=== PATIENT | female | born 1940 | race Caucasian/White ===

== ENCOUNTER 2018-09-03 10:30 | Inpatient (IN) ==
[2018-09-03] MEDS ORDERED: ACETAMINOPHEN 325 MG TABLET PO PRN (13:05)
[2018-09-03] MEDS ORDERED: NITROGLYCERIN SL 0.4 MG TABLET SL PRN (13:44)
[2018-09-03] MEDS ORDERED: FLUTICASONE 50 MCG NASAL SPRAY 16 GM BOTTLE BOTH NARES PRN (13:44)
[2018-09-03] MEDS ORDERED: DOCUSATE SODIUM 100 MG CAPSULE PO PRN (13:44)
[2018-09-03] MEDS ORDERED: AZITHROMYCIN 250 MG TABLET PO ONE (13:48)
[2018-09-03] MEDS ORDERED: AZITHROMYCIN INJ 500 MG in SODIUM CHLORIDE 0.9% 250 ML IV SCH (14:00)
[2018-09-03 14:09] LABS: Basophils # 0.1 10*3/uL (0.0-0.2); Basophils % 0.7 % (0.0-0.8); Eosinophils # 0.1 10*3/uL (0.0-0.87); Eosinophils % 0.8 % (0.00-10.9); Hematocrit 36.2 VOL% (35.7-47.0); Hemoglobin 12.6 GM/DL (12.0-16.0); Immature Granulocytes % 0.6 %; Immature Granulocytes Absolute 0.05 #; Lymphocytes # 2.6 10*3/uL (1.4-4.0); Lymphocytes % 30.3 % (21.3-54.2); Mean Corpuscular HGB Conc 34.8 GM/DL (32-36); Mean Corpuscular Hemoglobin 33 PG (27-34); Mean Corpuscular Volume 94.8 FL (87-102); Mean Platelet Volume 9.7 FL (9.6-12.0); Monocytes # 0.6 10*3/uL (0.11-0.8); Monocytes % 7.1 % (1.7-12.7); Neutrophils # 5.1 10*3/uL (1.4-7.4); Neutrophils % 60.5 % (38.7-73.9); Platelet Count 272 T/CUMM (130-400); Red Blood Count 3.82 MC/CUMM (3.8-5.5); Red Cell Distribution Width 15.9 % (9.3-17.3); White Blood Count 8.4 T/CUMM (4-12)
[2018-09-03 14:27] LABS: Albumin 3.7 G/DL (3.4-5.0); Bilirubin,Total 0.7 MG/DL (0.2-1.0); Calcium 8.9 MG/DL (8.5-10.1); Osmolality,Calculated 280.3 MOS/KG (273-304); Potassium 4.2 MMOL/L (3.5-5.1); Total Protein 7.1 G/DL (6.4-8.3)
[2018-09-03] MEDS: methylPREDNISolone SOD SUC 40 MG/1 ML VIAL IV SCH ×2 (14:30→21:42)
[2018-09-03] MEDS: NICOTINE 21 MG/24 HR PATCH TRANSDERM SCH (14:30)
[2018-09-03 14:39] LABS: Apearance,Urine CLEAR (Clear); Bilirubin,Urine Negative (Negative); Blood, Urine Negative (Negative); Glucose,Urine (UA) Negative (Negative); Ketones,Urine Negative (Negative); Mucus,Urine Occasional /LPF (Occasional); Nitrite,Urine Negative (Negative); Protein,Urine Negative; RBC,Urine 1 /HPF (0-4); Urine Color Yellow (Yellow); Urine Specific Gravity 1.016 (1.001-1.035); WBC,Urine 1 /HPF (0-6)
[2018-09-03] MEDS ORDERED: ALBUTEROL/IPRATROPIUM 3 ML NEB RESP TX PRN (15:00)
[2018-09-03] MEDS: ALBUTEROL/IPRATROPIUM 3 ML NEB RESP TX SCH (19:05)
[2018-09-03] MEDS: SIMVASTATIN 20 MG TABLET PO SCH (21:41)
[2018-09-03] MEDS: guaiFENesin 200 MG/10 ML UDCUP PO PRN (21:41)
[2018-09-04] MEDS: ALBUTEROL/IPRATROPIUM 3 ML NEB RESP TX SCH ×4 (00:36→20:03)
[2018-09-04 05:44] LABS: Basophils % 0.3 % (0.0-0.8); Hematocrit 32.7 VOL% (35.7-47.0); Hemoglobin 11.1 GM/DL (12.0-16.0); Immature Granulocytes % 0.5 %; Immature Granulocytes Absolute 0.03 #; Lymphocytes # 1.5 10*3/uL (1.4-4.0); Lymphocytes % 23.4 % (21.3-54.2); Mean Corpuscular HGB Conc 33.9 GM/DL (32-36); Mean Corpuscular Hemoglobin 32 PG (27-34); Mean Corpuscular Volume 94.2 FL (87-102); Mean Platelet Volume 10.2 FL (9.6-12.0); Monocytes # 0.1 10*3/uL (0.11-0.8); Monocytes % 1.7 % (1.7-12.7); Neutrophils # 4.8 10*3/uL (1.4-7.4); Neutrophils % 74.1 % (38.7-73.9); Platelet Count 256 T/CUMM (130-400); Red Blood Count 3.47 MC/CUMM (3.8-5.5); Red Cell Distribution Width 15.8 % (9.3-17.3); White Blood Count 6.4 T/CUMM (4-12)
[2018-09-04 06:11] LABS: Albumin 3.4 G/DL (3.4-5.0); Bilirubin,Total 0.9 MG/DL (0.2-1.0); Calcium 8.7 MG/DL (8.5-10.1); Osmolality,Calculated 285.3 MOS/KG (273-304); Potassium 4.4 MMOL/L (3.5-5.1); Total Protein 6.7 G/DL (6.4-8.3)
[2018-09-04] MEDS: BENZONATATE 100 MG CAPSULE PO PRN (06:14)
[2018-09-04] MEDS: PANTOPRAZOLE 40 MG TABLET PO SCH (06:14)
[2018-09-04] MEDS: methylPREDNISolone SOD SUC 40 MG/1 ML VIAL IV SCH ×3 (06:14→20:59)
[2018-09-04] MEDS: guaiFENesin 200 MG/10 ML UDCUP PO PRN ×2 (06:16→08:50)
[2018-09-04] MEDS: ASPIRIN EC 81 MG TABLET PO SCH (08:51)
[2018-09-04] MEDS: NICOTINE 21 MG/24 HR PATCH TRANSDERM SCH (08:51)
[2018-09-04] MEDS: AZITHROMYCIN 250 MG TABLET PO SCH (08:51)
[2018-09-04] MEDS: METOPROLOL SUCCINATE XL 25 MG TABLET PO SCH (08:51)
[2018-09-04] MEDS: CLOPIDOGREL 75 MG TABLET PO SCH (08:51)
[2018-09-04] MEDS: SIMVASTATIN 20 MG TABLET PO SCH (20:59)
[2018-09-05] MEDS: ALBUTEROL/IPRATROPIUM 3 ML NEB RESP TX SCH ×4 (01:52→19:11)
[2018-09-05 05:02] LABS: Basophils % 0.1 % (0.0-0.8); Hematocrit 34.6 VOL% (35.7-47.0); Hemoglobin 11.8 GM/DL (12.0-16.0); Immature Granulocytes % 0.9 %; Immature Granulocytes Absolute 0.09 #; Lymphocytes # 1.9 10*3/uL (1.4-4.0); Lymphocytes % 19.8 % (21.3-54.2); Mean Corpuscular HGB Conc 34.1 GM/DL (32-36); Mean Corpuscular Hemoglobin 33 PG (27-34); Mean Corpuscular Volume 96.1 FL (87-102); Mean Platelet Volume 9.9 FL (9.6-12.0); Monocytes # 0.4 10*3/uL (0.11-0.8); Neutrophils # 7.2 10*3/uL (1.4-7.4); Neutrophils % 75.2 % (38.7-73.9); Platelet Count 298 T/CUMM (130-400); White Blood Count 9.6 T/CUMM (4-12)
[2018-09-05 05:22] LABS: Albumin 3.7 G/DL (3.4-5.0); Bilirubin,Total 0.5 MG/DL (0.2-1.0); Calcium 8.8 MG/DL (8.5-10.1); Osmolality,Calculated 283.4 MOS/KG (273-304); Potassium 4.1 MMOL/L (3.5-5.1); Total Protein 6.9 G/DL (6.4-8.3)
[2018-09-05] MEDS: PANTOPRAZOLE 40 MG TABLET PO SCH (05:53)
[2018-09-05] MEDS: methylPREDNISolone SOD SUC 40 MG/1 ML VIAL IV SCH ×3 (05:53→21:10)
[2018-09-05] MEDS: guaiFENesin 200 MG/10 ML UDCUP PO PRN ×3 (05:55→20:02)
[2018-09-05] MEDS: ASPIRIN EC 81 MG TABLET PO SCH (08:30)
[2018-09-05] MEDS: METOPROLOL SUCCINATE XL 25 MG TABLET PO SCH (08:30)
[2018-09-05] MEDS: CLOPIDOGREL 75 MG TABLET PO SCH (08:30)
[2018-09-05] MEDS: AZITHROMYCIN 250 MG TABLET PO SCH (08:30)
[2018-09-05 13:24] LABS: CKMB % 2.1 %; Troponin I < 0.015 NG/ML (0.00-0.045)
[2018-09-05] MEDS: NICOTINE 21 MG/24 HR PATCH TRANSDERM SCH (13:42)
[2018-09-05] MEDS: SIMVASTATIN 20 MG TABLET PO SCH (21:13)
[2018-09-06] MEDS: ALBUTEROL/IPRATROPIUM 3 ML NEB RESP TX SCH ×4 (00:08→19:44)
[2018-09-06] MEDS: PANTOPRAZOLE 40 MG TABLET PO SCH (05:50)
[2018-09-06] MEDS: methylPREDNISolone SOD SUC 40 MG/1 ML VIAL IV SCH ×3 (05:50→21:38)
[2018-09-06] MEDS: METOPROLOL SUCCINATE XL 25 MG TABLET PO SCH (08:45)
[2018-09-06] MEDS: ASPIRIN EC 81 MG TABLET PO SCH (08:45)
[2018-09-06] MEDS: NICOTINE 21 MG/24 HR PATCH TRANSDERM SCH (08:45)
[2018-09-06] MEDS: AZITHROMYCIN 250 MG TABLET PO SCH (08:45)
[2018-09-06] MEDS: CLOPIDOGREL 75 MG TABLET PO SCH (08:45)
[2018-09-06] MEDS: cefTRIAXone 1,000 MG in SYRINGE 1 EACH IV SCH (10:08)
[2018-09-06] MEDS: guaiFENesin 200 MG/10 ML UDCUP PO PRN ×2 (10:10→21:38)
[2018-09-06] MEDS: CETIRIZINE 10 MG TABLET PO SCH (11:31)
[2018-09-06] MEDS: BENZONATATE 100 MG CAPSULE PO PRN (21:38)
[2018-09-06] MEDS: SIMVASTATIN 20 MG TABLET PO SCH (21:38)
[2018-09-07] MEDS: ALBUTEROL/IPRATROPIUM 3 ML NEB RESP TX SCH ×4 (01:50→19:55)
[2018-09-07] MEDS: methylPREDNISolone SOD SUC 40 MG/1 ML VIAL IV SCH ×3 (05:32→21:45)
[2018-09-07] MEDS: PANTOPRAZOLE 40 MG TABLET PO SCH (05:32)
[2018-09-07] MEDS: NICOTINE 21 MG/24 HR PATCH TRANSDERM SCH ×2 (08:18→08:26)
[2018-09-07] MEDS: ASPIRIN EC 81 MG TABLET PO SCH (08:18)
[2018-09-07] MEDS: CLOPIDOGREL 75 MG TABLET PO SCH (08:18)
[2018-09-07] MEDS: METOPROLOL SUCCINATE XL 25 MG TABLET PO SCH (08:18)
[2018-09-07] MEDS: cefTRIAXone 1,000 MG in SYRINGE 1 EACH IV SCH (08:18)
[2018-09-07] MEDS: CETIRIZINE 10 MG TABLET PO SCH (08:18)
[2018-09-07] MEDS: AZITHROMYCIN 250 MG TABLET PO SCH (08:18)
[2018-09-07] MEDS: BENZONATATE 100 MG CAPSULE PO PRN ×2 (15:25→19:43)
[2018-09-07] MEDS: guaiFENesin 200 MG/10 ML UDCUP PO PRN ×2 (15:25→19:43)
[2018-09-07] MEDS: SIMVASTATIN 20 MG TABLET PO SCH (21:44)
[2018-09-08] MEDS: guaiFENesin 200 MG/10 ML UDCUP PO PRN ×4 (00:05→20:41)
[2018-09-08] MEDS: ALBUTEROL/IPRATROPIUM 3 ML NEB RESP TX SCH ×4 (00:13→19:04)
[2018-09-08] MEDS: methylPREDNISolone SOD SUC 40 MG/1 ML VIAL IV SCH ×3 (05:52→21:18)
[2018-09-08] MEDS: PANTOPRAZOLE 40 MG TABLET PO SCH (05:54)
[2018-09-08] MEDS: BUDESONIDE/FORMOTEROL 160-4.5 INHALER 6 GM INH SCH ×3 (09:38→20:40)
[2018-09-08] MEDS: cefTRIAXone 1,000 MG in SYRINGE 1 EACH IV SCH (09:39)
[2018-09-08] MEDS: NICOTINE 21 MG/24 HR PATCH TRANSDERM SCH ×2 (09:39→09:57)
[2018-09-08] MEDS: CLOPIDOGREL 75 MG TABLET PO SCH (09:39)
[2018-09-08] MEDS: AZITHROMYCIN 250 MG TABLET PO SCH (09:39)
[2018-09-08] MEDS: METOPROLOL SUCCINATE XL 25 MG TABLET PO SCH (09:39)
[2018-09-08] MEDS: CETIRIZINE 10 MG TABLET PO SCH (09:39)
[2018-09-08] MEDS: ASPIRIN EC 81 MG TABLET PO SCH (09:39)
[2018-09-08] MEDS: BENZONATATE 100 MG CAPSULE PO PRN (20:42)
[2018-09-08] MEDS: SIMVASTATIN 20 MG TABLET PO SCH (20:42)
[2018-09-09] MEDS: ALBUTEROL/IPRATROPIUM 3 ML NEB RESP TX SCH ×2 (00:30→07:30)
[2018-09-09] MEDS: methylPREDNISolone SOD SUC 40 MG/1 ML VIAL IV SCH (06:21)
[2018-09-09] MEDS: PANTOPRAZOLE 40 MG TABLET PO SCH (06:21)
[2018-09-09] MEDS: guaiFENesin 200 MG/10 ML UDCUP PO PRN (08:40)
[2018-09-09] MEDS: CLOPIDOGREL 75 MG TABLET PO SCH (08:40)
[2018-09-09] MEDS: AZITHROMYCIN 250 MG TABLET PO SCH (08:40)
[2018-09-09] MEDS: ASPIRIN EC 81 MG TABLET PO SCH (08:40)
[2018-09-09] MEDS: METOPROLOL SUCCINATE XL 25 MG TABLET PO SCH (08:40)
[2018-09-09] MEDS: CETIRIZINE 10 MG TABLET PO SCH (08:41)
[2018-09-09] MEDS: cefTRIAXone 1,000 MG in SYRINGE 1 EACH IV SCH (08:42)
[2018-09-09] MEDS: NICOTINE 21 MG/24 HR PATCH TRANSDERM SCH (08:42)
[2018-09-09] MEDS: BUDESONIDE/FORMOTEROL 160-4.5 INHALER 6 GM INH SCH (08:45)
[2018-09-09] MEDS ORDERED: CEFUROXIME 500 MG TABLET PO SCH (09:00)
[2018-09-09] MEDS ORDERED: predniSONE 20 MG TABLET PO SCH (09:00)
[2018-09-09 13:08] VITALS: BP 123/62
== END 2018-09-09 12:45 | disposition home or self-care (01) | DRG 192 ==
LOC: N.2W → SUATTDRO 13:09 → N.5E 13:25
PROVIDERS: ADMIT Internal Medicine; ATTEND Internal Medicine